=== PATIENT | female | born 1970 | race Caucasian/White ===

== ENCOUNTER 2017-02-21 19:51 | Inpatient (IN) ==
[2017-02-21 20:46] LABS: Bilirubin,Urine Negative (Negative); Blood,Urine Trace (Negative); Clarity,Urine Clear (Clear); Color,Urine Yellow (Yellow); Glucose,Urine (UA) Normal (Normal); Ketones,Urine Trace mg/dL (Negative); Leukocyte Esterase,Urine Small (Negative); Nitrite,Urine Negative (Negative); Protein,Urine Negative (Neg-Trace); Specific Gravity,Urine 1.029 (1.010-1.025); Urobilinogen,Urine Normal (Normal)
[2017-02-21 20:47] LABS: Bacteria,Urine None Seen per hpf (None-Few); Hyaline Casts,Urine None Seen per lpf (None-Few); RBC,Urine 0-3 per hpf (0-3); Squamous Epithelial Cell,Urine Moderate per lpf (None-Few); WBC,Urine 0-3 per hpf (0-3)
[2017-02-21 20:57] LABS: Basophils % 0.3 %; Eosinophils % 0.2 %; Hematocrit 41.6 % (35.3-44.9); Hemoglobin 13.7 g/dL (11.5-15.4); Immature Granulocytes % 0.2 % (0-4); Lymphocytes % 7.7 %; Mean Corpuscular HGB Conc 32.9 g/dL (31.6-35.5); Mean Corpuscular Hemoglobin 28.5 pg (28.0-33.3); Mean Corpuscular Volume 86.7 fL (83.0-100.0); Mean Platelet Volume 9.9 fL (9.4-12.4); Monocytes # 0.8 K/mcL (0.0-1.3); Monocytes % 6.2 %; Neutrophils # 10.7 K/mcL (1.6-8.9); Platelet Count 335 K/mcL (140-400); Red Cell Distribution Width 13.2 % (11.5-14.5); Segmented Neutrophils % 85.4 %
[2017-02-21 21:41] LABS: Alanine Aminotransferase 18 Units/L (7-52); Albumin 4.1 g/dL (3.5-5.7); Albumin/Globulin Ratio 1.3 (1.1-2.2); Alkaline Phosphatase 58 Units/L (34-104); Amylase 20 Units/L (29-103); Aspartate Amino Transferase 14 Units/L (13-39); BUN/Creatinine Ratio 11 (6-26); Bilirubin,Direct 0.1 mg/dL (0.0-0.2); Bilirubin,Indirect 0.6 mg/dL (0.0-1.2); Bilirubin,Total 0.7 mg/dL (0.3-1.0); Blood Urea Nitrogen 8 mg/dL (6-20); Calcium 9.4 mg/dL (8.6-10.3); Carbon Dioxide 23 mEq/L (23-29); Chloride 104 mEq/L (98-107); Globulin 3.2 g/dL (2.4-3.5); Glucose 129 mg/dL (70-105); Lipase 6 Units/L (11-82); Osmolality,Calculated 278 (280-300); Potassium 3.7 mEq/L (3.5-5.1); Sodium 134 mEq/L (136-145); Total Protein 7.3 g/dL (6.4-8.9); eGFR For African Americans > 60 (> 60); eGFR For Non-African Americans > 60 (> 60)
[2017-02-22] MEDS ORDERED: Ondansetron 4 MG/2 ML VIAL IVP ONE (02:01)
[2017-02-22] MEDS ORDERED: *HR* HYDROmorphone (PF) 1 MG/ML SYRINGE IVP ONE ×2 (02:01→02:09)
[2017-02-22] MEDS ORDERED: MetroNIDAZOLE 500 MG/100 ML 500 MG/100 ML BAG IVPB ONE (02:53)
--- NOTE | 2017-02-22 03:10 | Emergency Department Note ---
Disposition Clinical Impression: Colitis GI bleed Qualifiers: GI bleed type/associated pathology: unspecified gastrointestinal hemorrhage type Qualified Code(s): K92.2 - Gastrointestinal hemorrhage, unspecified Disposition: Admitted As Inpatient Condition: Good Abdominal Pain HPI - General Chief Complaint: ED Abdominal Pain Stated Complaint: abdominal cramps, rectal bleed Time Seen by Provider: 02/21/17 23:37 Source: patient, family Mode of arrival: ambulatory Limitations: no limitations Nursing Notes Reviewed: Yes Vital Signs Reviewed: Yes - History of Present Illness HPI Narrative: Patient presents today for evaluation of abdominal pain. Patient's abdominal pain started about 3:30 AM. Patient states the symptoms which are now been going on for approximately 24 hours started with left-sided abdominal pain that she describes as cramping and doubling her over. She describes associated nausea. She describes 10 episodes of bloody bowel movements. Bedside commode shows gross blood in her bowel movements. Patient's abdomen is only mildly tender. She has not had fevers or chills. Patient was recently seen at previous ED with blood work but no imaging and told to follow-up with PCP. Patient's symptoms worsened in this outpatient management strategy is not sufficient. Patient will undergo further imaging with CT with IV contrast. 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 mg PO BID 02/21/17 02/22/17 Amoxicillin 875 mg PO BID 02/22/17 02/22/17 DULoxetine [Cymbalta] 30 mg PO BID 02/22/17 02/22/17 Previous Rx's Medication Instructions Recorded Dicyclomine [Bentyl] 10 mg PO QID PRN #20 capsule 02/21/17 Ciprofloxacin HCl [Cipro] 500 mg PO BID #10 tablet 02/23/17 Phos-NaK [Neutra-Phos] 1 each PO BID #6 powd.pack 02/23/17 metroNIDAZOLE [Flagyl] 500 mg PO TID #15 tablet 02/23/17 Allergies Allergy/AdvReac Type Severity Reaction Status Date / Time No Known Allergies Allergy Verified 03/26/15 20:48 Review of Systems: CONSTITUTIONAL: No weight loss, fever, chills, weakness or fatigue. HEENT: Eyes: No visual changes. Ears, Nose, Throat: No hearing loss, difficulty talking or unable to swallow. SKIN: No rash or itching. CARDIOVASCULAR: No chest pain, chest pressure or chest discomfort. No palpitations or edema. RESPIRATORY: No shortness of breath, cough or sputum. GASTROINTESTINAL: Abdominal pain and GI bleeding GENITOURINARY: No burning on urination or hematuria. NEUROLOGICAL: No headache, dizziness, syncope, paralysis, ataxia, numbness or tingling in the extremities. No change in bowel or bladder control. MUSCULOSKELETAL: No muscle pain, back pain, joint pain or stiffness. 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 Psychiatric history: Reports: depression - Social History Smoking status: Never smoker Alcohol use: Reports: none Drug use: Reports: none Physical Exam General appearance: NAD, conversant Eyes: anicteric sclerae, moist conjunctivae; PERRL HENT: Atraumatic; oropharynx clear with moist mucous membranes and no mucosal ulcerations Neck: Normal inspection; Trachea midline; FROM, supple Lungs: CTA, with normal respiratory effort and no intercostal retractions CV: RRR, no MRGs Abdomen: Soft, non-tender; no rebound or gaurding Extremities: No peripheral edema or extremity lymphadenopathy Skin: Normal temperature; no rash, ulcers or lesions Psych: Appropriate mood and affect Neuro: alert and oriented to person, place and time - General Limitations: no limitations General appearance: alert, in no apparent distress Course - Reevaluation(s) Reevaluation #1: Bedside commode shows gross blood. Sample sent down to rule out C. difficile. Reevaluation #2: Patient placed on antibiotics and will be admitted to the hospital service for further evaluation and management of gross rectal bleeding as well as colitis on CT. - Consultations Consultation #1: Discussed with Dr. Du who recommends getting lactate as well as repeat labs. Also request consult to be placed to GI or surgery. GI consulted. Vital Signs Temperature 98.9 F 02/21/17 20:15 Pulse Rate 103 02/21/17 20:15 Respiratory Rate 16 02/21/17 20:15 Blood Pressure 120/81 02/21/17 20:15 O2 Sat by Pulse Oximetry 97 02/21/17 20:15 Temperature 97.7 F 02/23/17 03:36 Pulse Rate 74 02/23/17 03:36 Respiratory Rate 16 02/23/17 03:36 Blood Pressure 110/73 02/23/17 03:36 O2 Sat by Pulse Oximetry 99 02/23/17 03:36 Oxygen Delivery Oxygen Delivery Room Air Abdominal Pain - Medical Records Medical records reviewed: Yes I reviewed the patient's medical records. - Lab Data Lab results reviewed: Yes I reviewed the patient's lab results. Result diagrams: 02/23/17 06:43 02/23/17 06:43 Lab Results 02/21/17 02/21/17 02/21/17 Range/Units 20:35 20:48 20:48 WBC 12.6 H (4.3-11.1) K/mcL RBC 4.80 (3.82-4.97) M/mcL Hgb 13.7 (11.5-15.4) g/dL Hct 41.6 (35.3-44.9) % MCV 86.7 (83.0-100.0) fL MCH 28.5 (28.0-33.3) pg MCHC 32.9 (31.6-35.5) g/dL RDW 13.2 (11.5-14.5) % Plt Count 335 (140-400) K/mcL MPV 9.9 (9.4-12.4) fL Immature Gran % 0.2 (0-4) % Seg Neutrophils % 85.4 % Lymphocytes % 7.7 % Monocytes % 6.2 % Eosinophils % 0.2 % Basophils % 0.3 % Neutrophils # 10.7 H (1.6-8.9) K/mcL Lymphocytes # 1.0 (0.6-4.6) K/mcL Monocytes # 0.8 (0.0-1.3) K/mcL Eosinophils # 0.0 (0.0-0.6) K/mcL Basophils # 0.0 (0.0-0.2) K/mcL Sodium 134 L (136-145) mEq/L Potassium 3.7 (3.5-5.1) mEq/L Chloride 104 (98-107) mEq/L Carbon Dioxide 23 (23-29) mEq/L BUN 8 (6-20) mg/dL Creatinine 0.71 (0.60-1.20) mg/dL Est GFR ( Amer) > 60 (> 60) Est GFR (Non-Af Amer) > 60 (> 60) BUN/Creatinine Ratio 11 (6-26) Glucose 129 H (70-105) mg/dL Calculated Osmolality 278 L (280-300) Lactic Acid (0.5-2.2) mmol/L Calcium 9.4 (8.6-10.3) mg/dL Total Bilirubin 0.7 (0.3-1.0) mg/dL Direct Bilirubin 0.1 (0.0-0.2) mg/dL Indirect Bilirubin 0.6 (0.0-1.2) mg/dL AST 14 (13-39) Units/L ALT 18 (7-52) Units/L Alkaline Phosphatase 58 (34-104) Units/L Serum Total Protein 7.3 (6.4-8.9) g/dL Albumin 4.1 (3.5-5.7) g/dL Globulin 3.2 (2.4-3.5) g/dL Albumin/Globulin Ratio 1.3 (1.1-2.2) Amylase 20 L (29-103) Units/L Lipase 6 L (11-82) Units/L Urine Color Yellow (Yellow) Urine Clarity Clear (Clear) Urine pH 5.0 (5.0-8.0) pH Units Ur Specific Holl[place] 1.029 H (1.010-1.025) Urine Protein Negative (Neg-Trace) mg/dL Urine Glucose (UA) Normal (Normal) mg/dL Urine Ketones Trace H (Negative) mg/dL Urine Blood Trace H (Negative) Urine Nitrite Negative (Negative) Urine Bilirubin Negative (Negative) Urine Urobilinogen Normal (Normal) mg/dL Ur Leukocyte Esterase Small H (Negative) Urine Microscopic RBC 0-3 (0-3) per hpf Urine Microscopic WBC 0-3 (0-3) per hpf Ur Squamous Epith Cells Moderate H (None-Few) per lpf Urine Bacteria None Seen (None-Few) per hpf Hyaline Casts None Seen (None-Few) per lpf Ur Culture Indicated? YES A (NO) Stool Occult Blood (Negative) Stl C. diff Tox B Gene (Negative) 02/22/17 02/22/17 02/22/17 Range/Units 01:20 01:20 05:34 WBC (4.3-11.1) K/mcL RBC (3.82-4.97) M/mcL Hgb (11.5-15.4) g/dL Hct (35.3-44.9) % MCV (83.0-100.0) fL MCH (28.0-33.3) pg MCHC (31.6-35.5) g/dL RDW (11.5-14.5) % Plt Count (140-400) K/mcL MPV (9.4-12.4) fL Immature Gran % (0-4) % Seg Neutrophils % % Lymphocytes % % Monocytes % % Eosinophils % % Basophils % % Neutrophils # (1.6-8.9) K/mcL Lymphocytes # (0.6-4.6) K/mcL Monocytes # (0.0-1.3) K/mcL Eosinophils # (0.0-0.6) K/mcL Basophils # (0.0-0.2) K/mcL Sodium 135 L (136-145) mEq/L Potassium 3.4 L (3.5-5.1) mEq/L Chloride 108 H (98-107) mEq/L Carbon Dioxide 23 (23-29) mEq/L BUN 8 (6-20) mg/dL Creatinine 0.66 (0.60-1.20) mg/dL Est GFR ( Amer) > 60 (> 60) Est GFR (Non-Af Amer) > 60 (> 60) BUN/Creatinine Ratio 12 (6-26) Glucose 95 (70-105) mg/dL Calculated Osmolality 278 L (280-300) Lactic Acid (0.5-2.2) mmol/L Calcium 8.1 L (8.6-10.3) mg/dL Total Bilirubin (0.3-1.0) mg/dL Direct Bilirubin (0.0-0.2) mg/dL Indirect Bilirubin (0.0-1.2) mg/dL AST (13-39) Units/L ALT (7-52) Units/L Alkaline Phosphatase (34-104) Units/L Serum Total Protein (6.4-8.9) g/dL Albumin (3.5-5.7) g/dL Globulin (2.4-3.5) g/dL Albumin/Globulin Ratio (1.1-2.2) Amylase (29-103) Units/L Lipase (11-82) Units/L Urine Color (Yellow) Urine Clarity (Clear) Urine pH (5.0-8.0) pH Units Ur Specific Holl[place] (1.010-1.025) Urine Protein (Neg-Trace) mg/dL Urine Glucose (UA) (Normal) mg/dL Urine Ketones (Negative) mg/dL Urine Blood (Negative) Urine Nitrite (Negative) Urine Bilirubin (Negative) Urine Urobilinogen (Normal) mg/dL Ur Leukocyte Esterase (Negative) Urine Microscopic RBC (0-3) per hpf Urine Microscopic WBC (0-3) per hpf Ur Squamous Epith Cells (None-Few) per lpf Urine Bacteria (None-Few) per hpf Hyaline Casts (None-Few) per lpf Ur Culture Indicated? (NO) Stool Occult Blood Positive A (Negative) Stl C. diff Tox B Gene Negative (Negative) 02/22/17 02/22/17 Range/Units 05:34 05:34 WBC 8.3 (4.3-11.1) K/mcL RBC 4.07 (3.82-4.97) M/mcL Hgb 11.7 D (11.5-15.4) g/dL Hct 36.1 (35.3-44.9) % MCV 88.7 (83.0-100.0) fL MCH 28.7 (28.0-33.3) pg MCHC 32.4 (31.6-35.5) g/dL RDW 13.2 (11.5-14.5) % Plt Count 258 (140-400) K/mcL MPV 10.0 (9.4-12.4) fL Immature Gran % 0.4 (0-4) % Seg Neutrophils % 77.2 % Lymphocytes % 13.0 % Monocytes % 8.7 % Eosinophils % 0.2 % Basophils % 0.5 % Neutrophils # 6.4 (1.6-8.9) K/mcL Lymphocytes # 1.1 (0.6-4.6) K/mcL Monocytes # 0.7 (0.0-1.3) K/mcL Eosinophils # 0.0 (0.0-0.6) K/mcL Basophils # 0.0 (0.0-0.2) K/mcL Sodium (136-145) mEq/L Potassium (3.5-5.1) mEq/L Chloride (98-107) mEq/L Carbon Dioxide (23-29) mEq/L BUN (6-20) mg/dL Creatinine (0.60-1.20) mg/dL Est GFR ( Amer) (> 60) Est GFR (Non-Af Amer) (> 60) BUN/Creatinine Ratio (6-26) Glucose (70-105) mg/dL Calculated Osmolality (280-300) Lactic Acid 1.6 (0.5-2.2) mmol/L Calcium (8.6-10.3) mg/dL Total Bilirubin (0.3-1.0) mg/dL Direct Bilirubin (0.0-0.2) mg/dL Indirect Bilirubin (0.0-1.2) mg/dL AST (13-39) Units/L ALT (7-52) Units/L Alkaline Phosphatase (34-104) Units/L Serum Total Protein (6.4-8.9) g/dL Albumin (3.5-5.7) g/dL Globulin (2.4-3.5) g/dL Albumin/Globulin Ratio (1.1-2.2) Amylase (29-103) Units/L Lipase (11-82) Units/L Urine Color (Yellow) Urine Clarity (Clear) Urine pH (5.0-8.0) pH Units Ur Specific [place] (1.010-1.025) Urine Protein (Neg-Trace) mg/dL Urine Glucose (UA) (Normal) mg/dL Urine Ketones (Negative) mg/dL Urine Blood (Negative) Urine Nitrite (Negative) Urine Bilirubin (Negative) Urine Urobilinogen (Normal) mg/dL Ur Leukocyte Esterase (Negative) Urine Microscopic RBC (0-3) per hpf Urine Microscopic WBC (0-3) per hpf Ur Squamous Epith Cells (None-Few) per lpf Urine Bacteria (None-Few) per hpf Hyaline Casts (None-Few) per lpf Ur Culture Indicated? (NO) Stool Occult Blood (Negative) Stl C. diff Tox B Gene (Negative) - Radiology Data Radiology results reviewed: Yes I reviewed the patient's radiology results. Abdomen/Pelvis CT 02/22/17 00:44 IMPRESSION: Colitis of the descending colon. D/ / Michael Keller MD / Michael Keller MD Interpreting Provider: Michael Keller MD Attestation Statement - Attestation Attestation: I examined this patient and my medical decision-making was reviewed with the Resident Physician, Dr. Akins. I agree with the documented findings, disposition and treatment plan as described except to the extent set forth below. Pt is a 46 yo wf, with hx 36 hours of LLQ abd pain, grossly bloody diarrhea, with no prior hx of bowel ds. Pt seen and evaluated yesterday for sxs, provided outpt meds and despite this and rest pt continuing to worsen. States she has had 10 grossly bloody BM's in past 12 hours. I agree with pt's PE findings as documented. Proceeded with CT with Iv contrast and labs. IV meds given. VSS. Labs wnl, CT shows colitis of desc colon. H/H stable. Pt with trouble tolerating PO, having ongoing LLQ pain despite IV meds x 3 in ED. Will cover with antibx and admit for ongoing mgmt. Stool cxs pending. D/W hospitalist.
[2017-02-22] MEDS ORDERED: 0.9 % Sodium Chloride 1,000 ML IVC ONE ×2 (04:18→04:57)
[2017-02-22 05:39] LABS: Basophils % 0.5 %; Eosinophils % 0.2 %; Hematocrit 36.1 % (35.3-44.9); Immature Granulocytes % 0.4 % (0-4); Lymphocytes # 1.1 K/mcL (0.6-4.6); Mean Corpuscular HGB Conc 32.4 g/dL (31.6-35.5); Mean Corpuscular Hemoglobin 28.7 pg (28.0-33.3); Mean Corpuscular Volume 88.7 fL (83.0-100.0); Monocytes # 0.7 K/mcL (0.0-1.3); Monocytes % 8.7 %; Neutrophils # 6.4 K/mcL (1.6-8.9); Platelet Count 258 K/mcL (140-400); Red Blood Count 4.07 M/mcL (3.82-4.97); Red Cell Distribution Width 13.2 % (11.5-14.5); Segmented Neutrophils % 77.2 %
[2017-02-22 05:41] LABS: Hemoglobin 11.7 g/dL (11.5-15.4)
[2017-02-22 05:56] LABS: BUN/Creatinine Ratio 12 (6-26); Blood Urea Nitrogen 8 mg/dL (6-20); Calcium 8.1 mg/dL (8.6-10.3); Carbon Dioxide 23 mEq/L (23-29); Chloride 108 mEq/L (98-107); Glucose 95 mg/dL (70-105); Osmolality,Calculated 278 (280-300); Potassium 3.4 mEq/L (3.5-5.1); Sodium 135 mEq/L (136-145); eGFR For African Americans > 60 (> 60); eGFR For Non-African Americans > 60 (> 60)
[2017-02-22] MEDS: Acetaminophen 325 MG TABLET PO PRN ×2 (06:28→16:00)
[2017-02-22] MEDS ORDERED: Naloxone 0.4 MG/ML INJ IVP PRN (09:14)
[2017-02-22] MEDS ORDERED: *HR* Morphine 2 MG/ML SYRINGE IVP PRN (09:14)
--- NOTE | 2017-02-22 09:32 | Internal Med History&Physical ---
Date of Encounter: 02/22/17 Time of Encounter: 09:23 Assessment and Plan (1) GI bleed Current visit: Yes Status: Acute 46/female Admitted with bright red blood per rectum. No significant past medical history other than a remote family history of ulcerative colitis Initially evaluated at [place] [facility] and came to this hospital for further evaluation. CT scan abdomen and pelvis: Evidence of colitis. CBC: Elevated white blood cell count. Electrolytes: Mild hypokalemia Plan: Admit as inpatient: Need intravenous antibiotics/close monitoring/frequent abdominal examination/replacement of her electrolytes intravenously. Intravenous Cipro 400 mg twice a day. Intravenous Flagyl 500 mg every 8 hours. Intravenous normal saline 70 mL/h Replace potassium intravenously. CBC every 6 hours Nothing by mouth except ice chips. Repeat labs tomorrow morning. GI prophylaxis. GI consult: Patient may need outpatient colonoscopy: Informed personally GI concreter I have examined this patient in the unit 3A 63 along with Mrs. Pedersen who is Charge nurse Qualifiers: GI bleed type/associated pathology: unspecified gastrointestinal hemorrhage type Qualified Code(s): K92.2 - Gastrointestinal hemorrhage, unspecified (2) Colitis Current visit: Yes Status: Acute See above (3) Pain in the abdomen Current visit: No Status: Acute See above Qualifiers: Abdominal location: unspecified location Qualified Code(s): R10.9 - Unspecified abdominal pain (4) DVT prophylaxis Current visit: Yes Status: Acute scd Patient is not candidate for pharmacological DVT prophylaxis in view of the GI bleed. Medical decision making: This patient has a moderate to severe risk of worsening in spite of being on appropriate medication to an underlying severity of disease. Internal Medicine - H&P: HPI Chief complaint: Bleeding per rectum Admitted From: Emergency Dept Plans for Post Hospital Care: Home History of present illness: PCP: Miroslava Maier ( [facility]) Brief PMH: Depression and no other medical issues. 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 Patient presented yesterday to [place] emergency room for bleeding per rectum. According to patient, the first episode of bleeding she noted on the early morning with she was in the toilet. There were 3 episodes of bleeding per rectum and that was the reason she went to the emergency room at [facility] for further evaluation. Per patient , she did not get better with the medication was prescribed to her from the [place] emergency room and she persistently had bowel movements with blood. Patient's daughter insisted patient to come to this hospital for further management. Patient denies chest pain, nausea, dizziness or diarrhea. Workup in the emergency room: Patient was evaluated in the emergency room. Basic labs were drawn. CT scan of the abdomen and pelvis was done. CT scan showed colitis. Reason for admission: Elevated white blood cell count along with electrolyte abnormality in a patient with bleeding per rectum with the CT evidence of colitis Family history: Remote family history of ulcerative colitis in aunt. 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 - Constitutional Constitutional: no chills, no fever(s), no night sweats - EENT Eyes: no change in vision, no discharge, no pain, no photophobia Ears: no ear discharge, no ear pain, no tinnitus Nose, mouth and throat: no dysphagia, no nasal discharge, no neck pain, no sore throat - Cardiovascular Cardiovascular ROS IM: no chest pain, no diaphoresis, no dyspnea, no lightheadedness, no palpitations, no syncope - Respiratory Respiratory: no cough, no dyspnea, no wheezing, no excessive phlegm production - Gastrointestinal Gastrointestinal: abdominal pain, hematochezia, loose stools, vomiting, no diarrhea, no hematemesis, no melena, no nausea - Genitourinary Genitourinary: no change in urinary stream, no dysuria, no flank pain, no hematuria - Musculoskeletal Musculoskeletal ROS IM: no numbness, no tingling - Integumentary Integumentary IM: no rash, no unusual bruising - Neurological Neurological ROS: no confusion, no convulsions, no focal weakness, no numbness, no tingling, no tremor(s) - Hematologic/Lymphatic Hematologic/Lymphatic: no easy bruising - Constitutional Vitals: Temp Pulse Resp BP Pulse Ox 97.4 F L 82 15 113/77 98 02/22/17 06:02 02/22/17 06:02 02/22/17 06:02 02/22/17 06:02 02/22/17 06:02 General appearance: Present: A&O X 3, pleasant, no acute distress, answers questions appropriately - Head Head exam: Present: atraumatic, normocephalic - Eye Eye exam: Present: PERRL, conjuntiva pink, sclera anicteric Pupils: Present: PERRL - Neck Neck exam general surgery: Present: supple, trachea midline. Absent: lymphadenopathy - Respiratory Respiratory exam: Present: CTAB. Absent: accessory muscle use, rales, rhonchi, wheezes - Cardiovascular Cardiovascular exam: Present: RRR, +S1, +S2. Absent: diastolic murmur, gallop, rubs, systolic murmur - GI/Abdominal GI/Abdominal exam: Present: normal bowel sounds, soft, tenderness, no peritoneal signs. Absent: distended Additional comments: Rectal examination was done with assistance of RN Miss Pedersen. After application of appropriate loop around the anal canal digital rectal examination was performed. Small scattered hemorrhoids, non-bleeding around 6 o'clock position. No masses felt. Noted that patient has a bright red blood on the fingertip along with stool. Findings explained to the patient. - Extremities Exam Extremities exam: Present: warm, radial pulses palpable and symmetrical. Absent : calf tenderness, cyanotic, pedal edema - Neurological Exam Neurological exam: Present: CN II-XII intact, oriented X3, no focal deficits. Absent: pronater drift, facial droop, speech deficit - Skin Skin exam: Present: dry, intact Internal Med - H&P Results - Labs CBC & Chem 7: 02/22/17 05:34 02/22/17 05:34 Labs: Short CBC 02/22/17 Range/Units 05:34 WBC 8.3 (4.3-11.1) K/mcL Hgb 11.7 D (11.5-15.4) g/dL Hct 36.1 (35.3-44.9) % Plt Count 258 (140-400) K/mcL Neutrophils # 6.4 (1.6-8.9) K/mcL BMP 02/22/17 05:34 Sodium 135 L Potassium 3.4 L Chloride 108 H Carbon Dioxide 23 BUN 8 Creatinine 0.66 Glucose 95 Calcium 8.1 L
[2017-02-22 10:27] LABS: Basophils % 0.2 %; Eosinophils % 0.2 %; Hematocrit 37.5 % (35.3-44.9); Hemoglobin 12.2 g/dL (11.5-15.4); Immature Granulocytes % 0.5 % (0-4); Lymphocytes # 0.9 K/mcL (0.6-4.6); Lymphocytes % 8.3 %; Mean Corpuscular HGB Conc 32.5 g/dL (31.6-35.5); Mean Corpuscular Hemoglobin 28.5 pg (28.0-33.3); Mean Corpuscular Volume 87.6 fL (83.0-100.0); Monocytes # 0.7 K/mcL (0.0-1.3); Monocytes % 6.6 %; Neutrophils # 8.6 K/mcL (1.6-8.9); Platelet Count 282 K/mcL (140-400); Red Blood Count 4.28 M/mcL (3.82-4.97); Red Cell Distribution Width 13.2 % (11.5-14.5); Segmented Neutrophils % 84.2 %
--- NOTE | 2017-02-22 10:46 | Gastroenterology Consult Note ---
<SkinnerRichard Murray - Last Filed: 02/22/17 10:43> Date of Encounter: 02/22/17 Time of Encounter: 09:50 - Assessment and plan (1) Colitis Status: Acute Assessment and plan: Ischemic vs infectious colitis. CT A/P with colonic wall thickening extending from the splenic flexure to the distal descending colon. C diff negative. Plan for colonoscopy in 4-6 weeks as outpatient. Follow up in GI office in 2-3 weeks. Continue IV antibiotics for now. Advance diet slowly as tolerated. (2) Pain in the abdomen Status: Acute Assessment and plan: Secondary to colitis. Qualifiers: Abdominal location: unspecified location Qualified Code(s): R10.9 - Unspecified abdominal pain (3) GI bleed Status: Acute Assessment and plan: Hgb 13.7 on admission and most recent Hgb 12.2. Continue to monitor CBC. Secondary to colitis. Plan for colonoscopy as outpatient. Qualifiers: GI bleed type/associated pathology: unspecified gastrointestinal hemorrhage type Qualified Code(s): K92.2 - Gastrointestinal hemorrhage, unspecified - Time Spent With Patient Total time spent is greater than 50% in coordination of care (as documented) at patient's floor/unit and/or counseling patient: GI History of Present Illness - Data of Consult Patient: new to practice Consult date: 02/22/17 Requesting Physician: Ishmael Blackmon - Consult Narrative Reason for consult: GI bleed, colitis History of present illness: Ms. Ochoa is a 46 year old female who presents with complaints of left sided abdominal pain that has been ongoing for about 24 hours. She states the pain was cramping in nature. She reports "several" episodes of bloody bowel movements over the last day. Bedside commode showed gross blood in the ED. C diff was negative. CT A/P with colonic wall thickening extending from the splenic flexure to the distal descending colon. Patients father was diagnosed with colon cancer at the age of 70. She denies fever, chills, chest pain, shortness of breath, nausea, vomiting, constipation, or diarrhea. Procedures: None NSAIDs: None Anticoagulation: None Past Med Surg Social Fam HX - Past Medical History Medical history: no medical history Psychiatric history: depression - Social History Smoking Status: Never smoker Smokeless Tobacco Status: No Alcohol use: none Drug use: none - Gastrointestinal Gastrointestinal: Present: as per HPI - Constitutional Constitutional: as per HPI - EENT Eyes: as per HPI Ears: Present: as per HPI Nose, mouth and throat: Present: as per HPI - Cardiovascular Cardiovascular ROS: Present: as per HPI - Respiratory Respiratory IM: Present: as per HPI - Genitourinary Genitourinary: Absent: change in color, Urinary frequency - Neurological ROS Neurological GI: Present: as per HPI - Hematologic/Lymphatic Hematologic/Lymphatic pediatric: Present: as per HPI - Musculoskeletal Musculoskeletal ROS GI: Present: as per HPI - Integumentary Integumentary GI: Present: as per HPI - Psychiatric ROS Psychiatric GI: Present: as per HPI - Endocrine Endocrine IM: Present: as per HPI - Constitutional Vitals: Temp Pulse Resp BP Pulse Ox 97.4 F L 82 15 113/77 98 02/22/17 06:02 02/22/17 06:02 02/22/17 06:02 02/22/17 06:02 02/22/17 06:02 General appearance: Present: cooperative, A&O X 3, no acute distress, answers questions appropriately - Head Head exam: Present: atraumatic, normocephalic - Eye Eye exam: Present: normal appearance, sclera anicteric - ENT ENT exam: Present: mucous membranes moist - Neck Neck exam general surgery: Present: normal inspection, trachea midline - Respiratory Respiratory exam: Present: CTAB. Absent: rales, rhonchi - Cardiovascular Cardiovascular exam: Present: RRR, +S1, +S2 - GI/Abdominal GI/Abdominal exam: Present: soft, tenderness (right sided tenderness with palpation), no peritoneal signs. Absent: distended, firm, guarding - Rectal Rectal exam: Present: deferred - Extremities Exam Extremities exam: Present: warm - Neurological Exam Neurological exam: Present: no focal deficits - Psychiatric Psychiatric exam: Present: normal affect, normal mood - Skin Skin exam: Present: dry, intact, normal color, warm Results - Labs CBC & Chem 7: 02/22/17 10:12 02/22/17 05:34 Labs: Last Result Calcium 8.1 mg/dL (8.6-10.3) L 02/22/17 05:34 Troponin I < 0.03 ng/mL (< 0.04) 02/22/17 10:12 Stool Occult Blood Positive (Negative) A 02/22/17 01:20 Entire Visit Hgb 12.2 g/dL (11.5-15.4) 02/22/17 10:12 Hct 37.5 % (35.3-44.9) 02/22/17 10:12 Total Bilirubin 0.7 mg/dL (0.3-1.0) 02/21/17 20:48 AST 14 Units/L (13-39) 02/21/17 20:48 ALT 18 Units/L (7-52) 02/21/17 20:48 Amylase 20 Units/L (29-103) L 02/21/17 20:48 Lipase 6 Units/L (11-82) L 02/21/17 20:48 Consult Discharge Plan - Plan Instructions: Ciprofloxacin (By mouth), Metronidazole (By mouth), Omeprazole ( By mouth), Phosphate Supplement (By mouth), Gastrointestinal Bleeding (GEN), Infectious Colitis (GEN) Additional Instructions: F/up with PCP in 1-2 weeks F/up with GI in 3-4 weeks Referrals: Miroslava Maier, COMMUNICATION CONSULTANT [Primary Care Provider] - Prescriptions: Ciprofloxacin HCl [Cipro] 500 mg PO BID #10 tablet metroNIDAZOLE [Flagyl] 500 mg PO TID #15 tablet Phos-NaK [Neutra-Phos] 1 each PO BID #6 powd.pack <Cem Mcallister - Last Filed: 02/27/17 13:46> Date of Encounter: 02/22/17 - Time Spent With Patient Total time spent is greater than 50% in coordination of care (as documented) at patient's floor/unit and/or counseling patient: GI History of Present Illness - Data of Consult Requesting Physician: Sendy Shankar MD - Consult Narrative History of present illness: Ms. Ochoa is a 46 year old female Past Med Surg Social Fam HX - Family History Mother Living Status: Still Living Hx Family Neurologic Disorders: Yes Father Living Status: Age at : 74 Cause of : colon cancer Hx Family Cancer: Yes - Constitutional Vitals: Temp Pulse Resp BP Pulse Ox 97.7 F 74 16 110/73 99 02/23/17 03:36 02/23/17 03:36 02/23/17 03:36 02/23/17 03:36 02/23/17 03:36 Results - Labs CBC & Chem 7: 02/23/17 06:43 02/23/17 06:43 Labs: Last Result Calcium 8.8 mg/dL (8.6-10.3) 02/23/17 06:43 Troponin I < 0.03 ng/mL (< 0.04) 02/22/17 20:41 Triglycerides 93 mg/dL (< 150) 02/23/17 06:43 Stool Occult Blood Positive (Negative) A 02/22/17 01:20 Entire Visit Hgb 12.5 g/dL (11.5-15.4) 02/23/17 06:43 Hct 39.4 % (35.3-44.9) 02/23/17 06:43 PT 13.0 Seconds (9.4-12.1) H 02/23/17 06:43 Total Bilirubin 0.3 mg/dL (0.3-1.0) 02/23/17 06:43 AST 10 Units/L (13-39) L 02/23/17 06:43 ALT 14 Units/L (7-52) 02/23/17 06:43 Amylase 20 Units/L (29-103) L 02/21/17 20:48 Lipase 6 Units/L (11-82) L 02/21/17 20:48 - ABG ABG results: PT/INR, D-dimer PT 13.0 Seconds (9.4-12.1) H 02/23/17 06:43 - Attending Attestation I have personally performed a face to face evaluation on this patient. I have reviewed and agree with the care plan. History and Exam by me shows:Agree with colonoscopy - given the suggestion of colitis. as first procedure. Watch hemoglobin.
[2017-02-22] MEDS: 0.9 % Sodium Chloride 1,000 ML IVC SCH (12:36)
[2017-02-22] MEDS: Pantoprazole 40 MG VIAL IVP SCH (12:36)
[2017-02-22 15:19] LABS: Basophils % 0.4 %; Eosinophils # 0.1 K/mcL (0.0-0.6); Eosinophils % 0.5 %; Hematocrit 37.6 % (35.3-44.9); Hemoglobin 12.4 g/dL (11.5-15.4); Immature Granulocytes % 0.3 % (0-4); Lymphocytes % 10.5 %; Mean Corpuscular Hemoglobin 28.5 pg (28.0-33.3); Mean Corpuscular Volume 86.4 fL (83.0-100.0); Mean Platelet Volume 10.4 fL (9.4-12.4); Monocytes # 0.7 K/mcL (0.0-1.3); Monocytes % 6.7 %; Platelet Count 261 K/mcL (140-400); Red Blood Count 4.35 M/mcL (3.82-4.97); Red Cell Distribution Width 13.1 % (11.5-14.5); Segmented Neutrophils % 81.6 %
[2017-02-22 15:52] LABS: Neutrophils # 7.9 K/mcL (1.6-8.9)
[2017-02-22] MEDS: MetroNIDAZOLE 500 MG/100 ML 500 MG/100 ML BAG IVPB SCH (16:01)
[2017-02-22 21:09] LABS: Basophils % 0.3 %; Eosinophils # 0.1 K/mcL (0.0-0.6); Eosinophils % 0.6 %; Hemoglobin 12.6 g/dL (11.5-15.4); Immature Granulocytes % 0.2 % (0-4); Lymphocytes # 1.3 K/mcL (0.6-4.6); Lymphocytes % 14.7 %; Mean Corpuscular HGB Conc 32.3 g/dL (31.6-35.5); Mean Corpuscular Hemoglobin 28.8 pg (28.0-33.3); Mean Platelet Volume 10.2 fL (9.4-12.4); Monocytes # 0.6 K/mcL (0.0-1.3); Monocytes % 6.6 %; Neutrophils # 6.9 K/mcL (1.6-8.9); Platelet Count 333 K/mcL (140-400); Red Blood Count 4.38 M/mcL (3.82-4.97); Red Cell Distribution Width 13.1 % (11.5-14.5); Segmented Neutrophils % 77.6 %
[2017-02-23] MEDS: MetroNIDAZOLE 500 MG/100 ML 500 MG/100 ML BAG IVPB SCH ×2 (00:40→10:00)
[2017-02-23 03:38] VITALS: BP 110/73
[2017-02-23] MEDS: 0.9 % Sodium Chloride 1,000 ML IVC SCH (04:07)
[2017-02-23 07:10] LABS: INR 1.2
[2017-02-23 07:13] LABS: Activated Partial Thrombo Time 31.9 Seconds (26.0-36.0)
[2017-02-23 07:45] LABS: Alanine Aminotransferase 14 Units/L (7-52); Albumin 3.7 g/dL (3.5-5.7); Albumin/Globulin Ratio 1.3 (1.1-2.2); Alkaline Phosphatase 52 Units/L (34-104); Aspartate Amino Transferase 10 Units/L (13-39); BUN/Creatinine Ratio 9 (6-26); Bilirubin,Total 0.3 mg/dL (0.3-1.0); Blood Urea Nitrogen 6 mg/dL (6-20); Calcium 8.8 mg/dL (8.6-10.3); Carbon Dioxide 27 mEq/L (23-29); Chloride 107 mEq/L (98-107); Globulin 2.8 g/dL (2.4-3.5); Glucose 106 mg/dL (70-105); Magnesium 2.1 mg/dL (1.6-2.6); Osmolality,Calculated 286 (280-300); Phosphorous 2.2 mg/dL (2.7-4.5); Potassium 3.5 mEq/L (3.5-5.1); Sodium 139 mEq/L (136-145); Total Protein 6.5 g/dL (6.4-8.9); Triglycerides 93 mg/dL (< 150); eGFR For African Americans > 60 (> 60); eGFR For Non-African Americans > 60 (> 60)
[2017-02-23 07:46] LABS: Chol/HDL Ratio 4.1 (0-4.9); Cholesterol 189 mg/dL (< 200); HDL Cholesterol 46 mg/dL (40-59); LDL Cholesterol,Calculated 124 mg/dL (0-99)
[2017-02-23 08:23] LABS: Basophils % 0.7 %; Eosinophils # 0.1 K/mcL (0.0-0.6); Eosinophils % 1.2 %; Hematocrit 39.4 % (35.3-44.9); Hemoglobin 12.5 g/dL (11.5-15.4); Immature Granulocytes % 0.3 % (0-4); Lymphocytes # 1.1 K/mcL (0.6-4.6); Lymphocytes % 19.6 %; Mean Corpuscular HGB Conc 31.7 g/dL (31.6-35.5); Mean Corpuscular Hemoglobin 28.1 pg (28.0-33.3); Mean Corpuscular Volume 88.5 fL (83.0-100.0); Mean Platelet Volume 10.3 fL (9.4-12.4); Monocytes # 0.5 K/mcL (0.0-1.3); Monocytes % 7.8 %; Neutrophils # 4.1 K/mcL (1.6-8.9); Platelet Count 308 K/mcL (140-400); Red Blood Count 4.45 M/mcL (3.82-4.97); Red Cell Distribution Width 13.2 % (11.5-14.5); Segmented Neutrophils % 70.4 %
[2017-02-23 09:24] LABS: Hemoglobin A1C 4.8 %
[2017-02-23] MEDS: Pantoprazole 40 MG VIAL IVP SCH (10:00)
--- NOTE | 2017-02-23 14:13 | Discharge Summary ---
Date of Encounter: 02/23/17 Time of Encounter: 14:04 - Discharge Diagnosis (1) Colitis Priority: Primary Status: Acute (2) Hypokalemia Priority: Primary Status: Acute (3) Depression Priority: Secondary Status: Chronic Qualifiers: Depression Type: unspecified Qualified Code(s): F32.9 - Major depressive disorder, single episode, unspecified - Discharge Medications Prescriptions: Ciprofloxacin HCl [Cipro] 500 mg PO BID #10 tablet metroNIDAZOLE [Flagyl] 500 mg PO TID #15 tablet Phos-NaK [Neutra-Phos] 1 each PO BID #6 powd.pack Home Medications: Dicyclomine [Bentyl] 10 mg PO QID PRN #20 capsule 02/21/17 [Rx] Ranitidine HCl [Acid [employer] Editor] 75 mg PO BID 02/21/17 [History] Amoxicillin 875 mg PO BID 02/22/17 [History] DULoxetine [Cymbalta] 30 mg PO BID 02/22/17 [History] Ciprofloxacin HCl [Cipro] 500 mg PO BID #10 tablet 02/23/17 [Rx] Phos-NaK [Neutra-Phos] 1 each PO BID #6 powd.pack 02/23/17 [Rx] metroNIDAZOLE [Flagyl] 500 mg PO TID #15 tablet 02/23/17 [Rx] Allergies/Adverse Reactions: 3 Allergy/AdvReac Type Severity Reaction Status Date / Time No Known Allergies Allergy Verified 03/26/15 20:48 Date of admission: 02/22/17 09:14 Primary care physician: Miroslava Maier CNP Discharging clinician: Sendy Shankar Anticipated date of discharge: 02/23/17 - Patient Status Disposition: Home, Self-Care Condition: Good Functional capacity at discharge: independent ambulation Overall status at discharge: patient is progressing back to baseline - Discharge Instructions Follow Up With: Miroslava Maier CNP [Primary Care Provider] - Additional Instructions: F/up with PCP in 1-2 weeks F/up with GI in 3-4 weeks - Diet and Activity Activity: resume usual activities as tolerated Diet: advance to your usual diet Hospital course: Ms. Ochoa is a 46 year old female with no significant past medical history, who was admitted with abdominal pain and bloody bowel movements. CT abdomen/pelvis done in the emergency room showed colitis and descending colon. Patient was started on IV hydration, bowel rest and empiric IV antibiotics-ciprofloxacin and Flagyl. Hemoglobin was monitored closely, and remained stable. Gastroenterology was consulted, recommended outpatient colonoscopy in 4-6 weeks. Patient is currently able to tolerate soft diet and is otherwise medically stable for discharge. She was noted to have hypokalemia and hypophosphatemia likely from GI losses, which were supplemented. - Time Spent with Patient Total time spent providing and/or coordinating discharge services: Greater than 30 minutes (45 min) - Constitutional Vitals: Temp Pulse Resp BP Pulse Ox 97.7 F 74 16 110/73 99 02/23/17 03:36 02/23/17 03:36 02/23/17 03:36 02/23/17 03:36 02/23/17 03:36 General appearance: Present: A&O X 3, no acute distress, answers questions appropriately - Cardiovascular Cardiovascular exam: Present: RRR, +S1, +S2. Absent: diastolic murmur, gallop, rubs, systolic murmur - GI/Abdominal GI/Abdominal exam: Present: normal bowel sounds, soft, no peritoneal signs. Absent: distended, tenderness
== END 2017-02-23 17:35 | disposition home or self-care (01) | DRG 392 ==
LOC: 3ANU 19:51 → EMEROO 19:51 → 3ANU 02-22 05:47 → SUATTDRO 02-22 09:14
PROVIDERS: ADMIT Internal Medicine; ATTEND Internal Medicine